=== PATIENT | male | born 1980 | race Caucasian/White ===

== ENCOUNTER 2016-08-03 13:11 | Emergency (ER) | payer OTHER ==
[~2016-08-03 13:11] MED LIST: BACTRIM DS TABL1 TA2 PO; FLEXERIL10 M1 PO; IBUPROFEN800 MG PO; LORTAB 5/500 TA1 TA1 PO; LORTAB 7.5-5001 TAB PO; NO MEDICATIONS; PREDNISONE10 MG/DOSE PO; VISTARIL PO
== END 2016-08-03 14:35 | disposition home or self-care (01) ==
LOC: SED 13:11
DX: S80.01XA Contusion of right knee, initial encounter (principal); F17.200 Nicotine dependence, unspecified, uncomplicated; Z86.19 Personal history of other infectious and parasitic diseases; W10.9XXA Fall (on) (from) unspecified stairs and steps, initial encounter; Y92.009 Unspecified place in unspecified non-institutional (private) residence as the place of occurrence of the external cause
CPT/HCPCS: 99283

== ENCOUNTER 2016-09-22 10:40 | Emergency (ER) | payer OTHER | END 2016-09-22 11:43 | disposition home or self-care (01) | LOC: CED 10:40 | DX: L01.00 Impetigo, unspecified (principal); T78.40XA Allergy, unspecified, initial encounter; F17.200 Nicotine dependence, unspecified, uncomplicated | CPT/HCPCS: 99283 ==